=== PATIENT | female | born 1965 | race American Indian/Alaskan Native ===

== ENCOUNTER 2021-04-09 00:53 | Observation (INO) | payer SELFPAY ==
--- NOTE | 2021-04-09 02:20 | Emergency Department Report ---
ED Dizziness HPI - General Chief Complaint: Dizziness Stated Complaint: GENERAL ILLNESS Time Seen by Provider: 04/09/21 02:16 Source: patient, EMS Mode of arrival: Stretcher Limitations: No Limitations - History of Present Illness Initial Comments: Patient is a 55-year-old female that presents emergency room with complaints of dizziness, headache, shortness of breath, lightheadedness, loss of balance and difficulties walking. Patient states her symptoms started approximately 30 minutes prior to arrival. Patient states that her symptoms are better with rest. Patient states her symptoms are better with movement and exertion. Patient denies chest pain. Patient states her shortness of breath better with rest and worse with exertion. Patient denies recent travel. Patient denies recent international travel. Patient denies exposure to the novel coronavirus. Patient denies sick contacts. Patient denies fever and chills. Patient denies cough. Patient denies diarrhea. Patient denies coming in contact with anybody with symptoms of the n ovel coronavirus. MD Complaint: dizziness, lightheadedness -: Sudden Timing: sudden onset Description: lightheadedness, difficulty walking History of Same: No History of Trauma: No Severity: severe Improves With: rest Worsens With: movement, position, exertion Associated Symptoms: malaise, shortness of breath, weakness, other (Headache). denies: ataxia, chest pain, confusion, cough, diaphoresis, fever/chills, loss of appetite, syncope - Related Data Allergies Allergy/AdvReac Type Severity Reaction Status Date / Time lisinopril Allergy Unknown Verified 04/09/21 01:09 ED Review of Systems ROS: Stated complaint: GENERAL ILLNESS Other details as noted in HPI Constitutional: denies: chills, fever Eyes: denies: eye pain, eye discharge, vision change ENT: denies: ear pain, throat pain Respiratory: shortness of breath. denies: cough, wheezing Cardiovascular: denies: chest pain, palpitations Endocrine: no symptoms reported Gastrointestinal: denies: abdominal pain, nausea, diarrhea Genitourinary: denies: urgency, dysuria, discharge Musculoskeletal: denies: back pain, joint swelling, arthralgia Skin: denies: rash, lesions Neurological: as per HPI, headache. denies: weakness, paresthesias Psychiatric: denies: anxiety, depression Hematological/Lymphatic: denies: easy bleeding, easy bruising ED Past Medical Hx - Past Medical History Previous Medical History?: Yes Hx Hypertension: Yes Hx CVA: (TIA) Hx Diabetes: Yes - Surgical History Past Surgical History?: Yes Additional Surgical History: abscess to jaw, gallstones - Family History Family history: no significant - Social History Smoking Status: Never Smoker Substance Use Type: None ED Physical Exam - General Limitations: No Limitations General appearance: alert, in no apparent distress - Head Head exam: Present: atraumatic, normocephalic - Eye Eye exam: Present: normal appearance - ENT ENT exam: Present: mucous membranes moist - Neck Neck exam: Present: normal inspection - Respiratory Respiratory exam: Present: normal lung sounds bilaterally. Absent: respiratory distress - Cardiovascular Cardiovascular Exam: Present: regular rate, normal rhythm. Absent: systolic murmur, diastolic murmur, rubs, gallop - GI/Abdominal GI/Abdominal exam: Present: soft, normal bowel sounds - Extremities Exam Extremities exam: Present: normal inspection - Back Exam Back exam: Present: normal inspection - Neurological Exam Neurological exam: Present: alert, oriented X3 - Psychiatric Psychiatric exam: Present: normal affect, normal mood - Skin Skin exam: Present: warm, dry, intact, normal color. Absent: rash ED Course Vital Signs 04/09/21 04/09/21 01:00 02:33 Temperature 99.7 F H Pulse Rate 127 H Respiratory 18 24 Rate Blood Pressure 133/82 [Left] O2 Sat by Pulse 95 96 Oximetry - Reevaluation(s) Reevaluation #1: I discussed all results with patient. I discussed plan of care with patient. Patient agrees with plan of care and admission. Patient to be admitted to the hospitalist service. 04/09/21 05:33 - Consultations Consultation #1: Hospitalist consulted for admission. Hospitalist to admit patient. 04/09/21 05:34 ED Medical Decision Making - Lab Data Result diagrams: 04/09/21 02:30 04/09/21 02:30 - EKG Data -: EKG Interpreted by Me EKG shows normal: sinus rhythm, axis, intervals, QRS complexes, ST-T waves Rate: normal - Radiology Data Radiology results: report reviewed, image reviewed interpreted by me: Chest x-ray: No pneumonia, no pneumothorax, no foreign body, no osseous findings, no acute findings CHEST 1 VIEW 04/09/2021 2:25 AM INDICATION / CLINICAL INFORMATION: sob. COMPARISON: None available. FINDINGS: SUPPORT DEVICES: None. HEART / MEDIASTINUM: No significant abnormality. LUNGS / PLEURA: No significant pulmonary or pleural abnormality. No pneumothorax. ADDITIONAL FINDINGS: No significant additional findings. IMPRESSION: 1. No acute findings. CT HEAD WITHOUT CONTRAST INDICATION / CLINICAL INFORMATION: Lightheadedness/Dizziness. TECHNIQUE: All CT scans at this location are performed using CT dose reduction for ALARA by means of automated exposure control. COMPARISON: None available. FINDINGS: No acute intracranial hemorrhage. Ventricles are normal in size without midline shift or mass effect. Mild streaky last 3. Small retention cyst in the right maxillary sinus. ADDITIONAL FINDINGS: None. IMPRESSION: 1. No acute intracranial abnormality. If there is concern for acute ischemic change MRI with diffusion could be performed. - Medical Decision Making Patient is a 55-year-old female who presents emergency room with complaints of dizziness, lightheadedness, shortness of breath, abnormal gait, headache. Patient had a TIA in the past. Patient had a CT scan of the head which was negative for acute finding. Patient had a chest x-ray which was negative for acute findings. I personally reviewed the chest x-ray. Patient had a EKG which showed no acute changes. I personally reviewed the EKG. Patient had labs done which were essentially unremarkable. Due to the patient history and current s ymptoms, the patient will require inpatient treatment. Patient admitted to the hospital service for further evaluation treatment. Critical care time documented due to the multiple reassessments, prolonged time at the bedside, interpretation of diagnostics and labs. - Differential Diagnosis TIA, dizziness, abnormal gait, shortness of breath, headache Critical Care Time: Yes Critical care time in (mins) excluding proc time.: 35 Critical care attestation.: If time is entered above; I have spent that time in minutes in the direct care of this critically ill patient, excluding procedure time. Critical Care Time: 35 minutes ED Disposition Clinical Impression: Abnormal gait, Dizziness, Shortness of breath Headache Qualifiers: Headache type: unspecified Headache chronicity pattern: acute headache Intractability: not intractable Qualified Code(s): R51.9 - Headache, unspecified Disposition: ADMITTED INPATIENT Is pt being admited?: Yes Does the pt Need Aspirin: No Condition: Critical Time of Disposition: 05:32
--- NOTE | 2021-04-09 02:56 | XRay Report ---
CHEST 1 VIEW 04/09/2021 2:25 AM INDICATION / CLINICAL INFORMATION: sob. COMPARISON: None available. FINDINGS: SUPPORT DEVICES: None. HEART / MEDIASTINUM: No significant abnormality. LUNGS / PLEURA: No significant pulmonary or pleural abnormality. No pneumothorax. ADDITIONAL FINDINGS: No significant additional findings. IMPRESSION: 1. No acute findings. Signer Name: Dejan Mason MD Signed: 04/09/2021 2:51 AM Workstation Name: [id number]
[2021-04-09 03:08] LABS: Basophils % (Auto) 0.4 % (0.0-1.8); Eosinophils % (Auto) 0.3 % (0.0-4.3); Hematocrit 40.7 % (30.3-42.9); Lymphocytes # (Auto) 2.3 K/mm3 (1.2-5.4); Mean Corpuscular HGB Conc 32 % (30-34); Mean Corpuscular Volume 86 fl (79-97); Monocytes # (Auto) 0.5 K/mm3 (0.0-0.8); Monocytes % (Auto) 6.7 % (0.0-7.3); Platelet Count 357 K/mm3 (140-440); Red Blood Count 4.75 M/mm3 (3.65-5.03); Red Cell Distribution Width 15.3 % (13.2-15.2)
--- NOTE | 2021-04-09 03:10 | Cat Scan Report ---
CT HEAD WITHOUT CONTRAST INDICATION / CLINICAL INFORMATION: Lightheadedness/Dizziness. TECHNIQUE: All CT scans at this location are performed using CT dose reduction for ALARA by means of automated e xposure control. COMPARISON: None available. FINDINGS: No acute intracranial hemorrhage. Ventricles are normal in size without midline shift or mass effect. Mild streaky last 3. Small retention cyst in the right maxillary sinus. ADDITIONAL FINDINGS: None. IMPRESSION: 1. No acute intracranial abnormality. If there is concern for acute ischemic change MRI with diffusio n could be performed. Signer Name: Dejan Mason MD Signed: 04/09/2021 3:06 AM Workstation Name: [email or web address]
[2021-04-09 03:32] LABS: Alanine Aminotransferase 44 units/L (7-56); Albumin 4.1 g/dL (3.9-5); BUN/Creatinine Ratio 12; Blood Urea Nitrogen 11 mg/dL (7-17); Calcium 9.5 mg/dL (8.4-10.2); Hemolysis Index 3
--- NOTE | 2021-04-09 07:49 | History and Physical Report ---
History of Present Illness Date of examination: 04/09/21 Date of admission: 04/09/2021 Chief complaint: dizziness, generalized weakness and unsteady gait History of present illness: 55-year-old female patient with significant past medical history of hypertension, TIA morbid obesity presented to the emergency room with dizziness generalized weakness unsteady gait of 1 hour prior to presenting to the emergency room, patient denies any loss of consciousness or fall has history of remote TIA not on any medications initial evaluation with CT head without contrast no acute abnormality noted Patient is not a candidate for TPA Patient is being admitted for further neuro evaluation to rule out CVA versus TIA. Patient symptoms significantly improved at the time of my evaluation Past History Past Medical History: diabetes, hypertension, other (TIA) Past Surgical History: Other (Abscess Jaw) Social history: denies: smoking, alcohol abuse, other (Recreational drug use) Family history: no significant family history Medications and Allergies Allergies Allergy/AdvReac Type Severity Reaction Status Date / Time lisinopril Allergy Unknown Verified 04/09/21 01:09 Home Medications Medication Instructions Recorded Confirmed Last Taken Type Amitriptyline 50 mg PO HS 04/09/21 04/09/21 04/07/21 History Aspirin 81 mg PO QDAY 04/09/21 04/09/21 04/07/21 08:00 History Baclofen 10 mg PO TID 04/09/21 04/09/21 04/07/21 20:00 History Cetirizine HCl 10 mg PO QDAY 04/09/21 04/09/21 04/07/21 History DULoxetine 30 mg PO DAILY 04/09/21 04/09/21 04/07/21 20:00 History Diclofenac 1% 2 gm TD TID PRN 04/09/21 04/09/21 04/07/21 10:00 History Esomeprazole Magnesium 20 mg PO DAILY 04/09/21 04/09/21 04/07/21 08:00 History Lidocaine 5 patch TD QDAY PRN 04/09/21 04/09/21 04/07/21 08:00 History Losartan 50 mg PO DAILY 04/09/21 04/09/21 04/07/21 08:00 History Metoprolol Xl 25 mg PO DAILY 04/09/21 04/09/21 04/07/21 08:00 History Pregabalin 75 mg PO BID 10/04/09/21 04/07/21 20:00 History Rivaroxaban [Xarelto] 20 mg PO QDAY 04/09/21 04/09/21 04/07/21 08:00 History Rosuvastatin Calcium 10 mg PO DAILY 04/09/21 04/09/21 04/07/21 History metFORMIN 500 mg PO BID 04/09/21 04/09/21 04/07/21 17:00 History Active Meds: Active Medications Aspirin (Aspirin 325 Mg Tab) 325 mg PO QDAY [facility] Atorvastatin Calcium (Atorvastatin 40 Mg Tab) 40 mg PO QHS [facility] Review of Systems Constitutional: weakness, other (Dizziness, unsteady gait), no weight loss, no weight gain, no anorexia, no fatigue Ears, nose, mouth and throat: no nasal congestion, no nasal discharge Cardiovascular: no chest pain, no orthopnea, no palpitations, no shortness of breath Respiratory: no cough, no hemoptysis Gastrointestinal: no abdominal pain, no nausea, no vomiting Genitourinary Female: no flank pain, no dysuria, no hematuria Musculoskeletal: no myalgias, no arthritis Integumentary: no rash, no lesions Neurological: weakness, ataxia, gait dysfunction, other (Unsteady gait) Psychiatric: no anxiety, no depression Endocrine: no cold intolerance, no heat intolerance Hematologic/Lymphatic: no easy bruising, no easy bleeding Allergic/Immunologic: no urticaria, no allergic rhinitis Exam - Constitutional Vitals: Temp Pulse Resp BP Pulse Ox 99.7 F H 127 H 24 133/82 96 04/09/21 01:00 04/09/21 01:00 04/09/21 02:33 04/09/21 01:00 04/09/21 02:33 General appearance: Present: no acute distress, well-nourished, obese (Morbidly obese) - EENT Eyes: Present: PERRL, EOM intact - Neck Neck: Present: supple, normal ROM - Respiratory Respiratory effort: normal Respiratory: bilateral: diminished, rhonchi, negative: rales, wheezing - Cardiovascular Rhythm: regular - Extremities Extremities: no ischemia, No edema - Abdominal General gastrointestinal: Present: soft, non-tender, non-distended, normal bowel sounds - Integumentary Integumentary: Present: clear, warm - Musculoskeletal Musculoskeletal: strength equal bilaterally, generalized weakness - Psychiatric Psychiatric: appropriate mood/affect, cooperative - Neurologic Neurologic: moves all extremities HEART Score - HEART Score Troponin: Troponin T < 0.010 ng/mL (0.00-0.029) 04/09/21 02:30 Results - Labs CBC & Chem 7: 04/09/21 02:30 04/09/21 02:30 Labs: Abnormal lab results 04/09/21 04/09/21 Range/Units 02:30 02:30 MCH 27 L (28-32) pg RDW 15.3 H (13.2-15.2) % Glucose 108 H (65-100) mg/dL Assessment and Plan - Patient Problems (1) Unsteady gait Current Visit: Yes Status: Acute Plan to address problem: Fall precautions Neuro work-up with MRI brain without, evaluate for acute CVA versus TIA Physical therapy occupational therapy, rehabilitation carotid Doppler, echocardiogram (2) Neurological symptoms Current Visit: Yes Status: Acute Plan to address problem: Neurochecks, MRI brain (3) Acute CVA (cerebrovascular accident) Current Visit: Yes Status: Acute Plan to address problem: MRI brain without contrast, echocardiogram, carotid Doppler PT OT, speech therapy if needed Neurology consult if indicated (4) TIA (transient ischemic attack) Current Visit: Yes Status: Acute Plan to address problem: Requested needle evaluation (5) Morbid obesity with BMI of 40.0-44.9, adult Current Visit: Yes Status: Acute Plan to address problem: Advised dietary modification, exercise as tolerated, and weight reduction when medically stable. Advised outpatient bariatric consultation for weight reduction program when medically stable Advised outpatient pulmonary evaluation to rule out obstructive sleep apnea and for possible CPAP BiPAP at night (6) DVT prophylaxis Current Visit: Yes Status: Acute Plan to address problem: Subcu Lovenox (7) Full code status Current Visit: Yes Status: Acute (8) Discharge planning issues Current Visit: Yes Status: Acute Plan to address problem: Per case management
[2021-04-09 08:30] LABS: Chol/HDL Ratio 2.21 %
[2021-04-09] MEDS ORDERED: LORazepam 2 MG/ML VIAL IV PRN (08:40)
[2021-04-09] MEDS: ASPIRIN 325 MG TAB PO SCH (10:38)
[2021-04-09] MEDS: PANTOPRAZOLE 40 MG TAB PO SCH (10:38)
--- NOTE | 2021-04-09 10:54 | Vascular Lab Report ---
DUPLEX DOPPLER ULTRASOUND CAROTID, BILATERAL INDICATION / CLINICAL INFORMATION: Neuro symptoms/CVA vs TIA. COMPARISON: None available. FINDINGS: RIGHT CAROTID: - PLAQUE ESTIMATE (%): < 50% - CCA velocity: 52 cm/sec. - ICA peak systolic velocity: 78 cm/sec. - ICA/CCA PSV Ratio: Less than 2 Right Vertebral Artery: Antegrade flow. LEFT CAROTID: - PLAQUE ESTIMATE: < 50% - CCA velocity: 57 cm/sec. - ICA peak systolic velocity: 66 cm/sec. - ICA/CCA PSV Ratio: Less than 2 Left Vertebral Artery: Antegrade flow. IMPRESSION: 1. Right Internal Carotid Artery: Less than 50% diameter stenosis. 2. Left Internal Carotid Artery: Less than 50% diameter stenosis. Velocity criteria are extrapolated from diameter data as defined by the Society of Radiologists in Ul trasound Consensus Conference, Radiology 2003; 229;340-346. NO STENOSIS (NORMAL) * Plaque = none; ICA PSV < 125 cm/sec; ICA/CCA PSV Ratio < 2.0 <50% STENOSIS * Plaque < 50%; ICA PSV < 125 cm/sec; ICA/CCA PSV Ratio < 2.0 50-69% STENOSIS * Plaque > 50%; ICA PSV = 125-230 cm/sec; ICA/CCA PSV Ratio = 2.0-4.0 >70% BUT <100% STENOSIS * Plaque > 50%; ICA PSV > 230 cm/sec; ICA/CCA PSV Ratio > 4.0 NEAR OCCLUSION * Plaque = visible lumen; ICA PSV = high/low/none; ICA/CCA PSV Ratio = variable TOTAL OCCLUSION * Plaque = no lumen; ICA PSV = none; ICA/CCA PSV Ratio = N/A Signer Name: Jasper Yepez MD Signed: 04/09/2021 10:49 AM Workstation Name: [email or web address]
--- NOTE | 2021-04-09 14:17 | Electrocardiograph Report ---
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
[2021-04-10] MEDS ORDERED: METOPROLOL TARTRATE 50 MG TAB PO ONE (07:57)
[2021-04-10 08:17] VITALS: BP 80/44
[2021-04-10] MEDS: METOPROLOL SUCCINATE XL 25 MG TAB PO SCH ×2 (08:25→09:29)
[2021-04-10] MEDS: PANTOPRAZOLE 40 MG TAB PO SCH (08:26)
[2021-04-10] MEDS: ASPIRIN 325 MG TAB PO SCH ×2 (08:26→09:29)
--- NOTE | 2021-04-10 08:43 | Progress Note ---
Assessment and Plan Assessment and plan: -- Unsteady gait Current Visit: Yes Status: Acute Fall precautions Neuro work-up with MRI brain without, evaluate for acute CVA versus TIA Physical therapy occupational therapy, rehabilitation CT head without contrast MRI brain Carotid Doppler Echocardiogram No acute abnormalities noted -- Neurological symptoms Current Visit: Yes Status: Acute Neurochecks, MRI brain -- Acute CVA (cerebrovascular accident) ruled out Current Visit: Yes Status: Acute MRI brain without contrast no acute abnormality PT OT, speech therapy if needed Neurology consult if indicated -- TIA (transient ischemic attack) Current Visit: Yes Status: Acute Patient symptoms resolved --History of a flutter; rapid ventricular rate Current Visit: Yes Status: Acute Patient did not receive her beta-blockers and Xarelto Resume Toprol-XL and Xarelto - Morbid obesity with BMI of 40.0-44.9, adult Current Visit: Yes Status: Acute Advised dietary modification, exercise as tolerated, and weight reduction when medically stable. Advised outpatient bariatric consultation for weight reduction program when medically stable Advised outpatient pulmonary evaluation to rule out obstructive sleep apnea and for possible CPAP BiPAP at night --DVT prophylaxis Current Visit: Yes Status: Acute Subcu Lovenox --Full code status Current Visit: Yes Status: Acute -- Discharge planning issues Current Visit: Yes Status: Acute Per case management Resume patient's home medications Closely monitor, possible discharge this evening if stable Hospitalist Physical - Constitutional Vitals: Temp Pulse Resp BP Pulse Ox 97.9 F 124 H 18 80/44 95 04/10/21 07:45 04/10/21 07:45 04/10/21 07:45 04/10/21 07:45 04/10/21 07:45 General appearance: Present: no acute distress, well-nourished, obese (Morbidly obese) HEART Score - HEART Score Troponin: Troponin T < 0.010 ng/mL (0.00-0.029) 04/09/21 02:30 Results - Labs CBC & Chem 7: 04/09/21 02:30 04/09/21 02:30 Labs: Laboratory Last Values WBC 7.6 K/mm3 (4.5-11.0) 04/09/21 02:30 RBC 4.75 M/mm3 (3.65-5.03) 04/09/21 02:30 Hgb 13.0 gm/dl (10.1-14.3) 04/09/21 02:30 Hct 40.7 % (30.3-42.9) 04/09/21 02:30 MCV 86 fl (79-97) 04/09/21 02:30 MCH 27 pg (28-32) L 04/09/21 02:30 MCHC 32 % (30-34) 04/09/21 02:30 RDW 15.3 % (13.2-15.2) H 04/09/21 02:30 Plt Count 357 K/mm3 (140-440) 04/09/21 02:30 Lymph % (Auto) 30.0 % (13.4-35.0) 04/09/21 02:30 [place] % (Auto) 6.7 % (0.0-7.3) 04/09/21 02:30 Eos % (Auto) 0.3 % (0.0-4.3) 04/09/21 02:30 Baso % (Auto) 0.4 % (0.0-1.8) 04/09/21 02:30 Lymph # (Auto) 2.3 K/mm3 (1.2-5.4) 04/09/21 02:30 [place] # (Auto) 0.5 K/mm3 (0.0-0.8) 04/09/21 02:30 Eos # (Auto) 0.0 K/mm3 (0.0-0.4) 04/09/21 02:30 Baso # (Auto) 0.0 K/mm3 (0.0-0.1) 04/09/21 02:30 Seg Neutrophils % 62.6 % (40.0-70.0) 04/09/21 02:30 Seg Neutrophils # 4.8 K/mm3 (1.8-7.7) 04/09/21 02:30 Sodium 140 mmol/L (137-145) 04/09/21 02:30 Potassium 3.8 mmol/L (3.6-5.0) 04/09/21 02:30 Chloride 100.1 mmol/L (98-107) 04/09/21 02:30 Carbon Dioxide 26 mmol/L (22-30) 04/09/21 02:30 Anion Gap 18 mmol/L 04/09/21 02:30 BUN 11 mg/dL (7-17) 04/09/21 02:30 Creatinine 0.9 mg/dL (0.6-1.2) 04/09/21 02:30 Estimated GFR > 60 ml/min 04/09/21 02:30 BUN/Creatinine Ratio 12 % 04/09/21 02:30 Glucose 108 mg/dL (65-100) H 04/09/21 02:30 Calcium 9.5 mg/dL (8.4-10.2) 04/09/21 02:30 Total Bilirubin 0.20 mg/dL (0.1-1.2) 04/09/21 02:30 AST 29 units/L (5-40) 04/09/21 02:30 ALT 44 units/L (7-56) 04/09/21 02:30 Alkaline Phosphatase 55 units/L (35-129) 04/09/21 02:30 Troponin T < 0.010 ng/mL (0.00-0.029) 04/09/21 02:30 Total Protein 7.6 g/dL (6.3-8.2) 04/09/21 02:30 Albumin 4.1 g/dL (3.9-5) 04/09/21 02:30 Albumin/Globulin Ratio 1.2 % 04/09/21 02:30 Triglycerides 102 mg/dL (2-149) 04/09/21 02:05 Cholesterol 146 mg/dL (50-199) 04/09/21 02:05 LDL Cholesterol Direct 65 mg/dL (50-130) 04/09/21 02:05 HDL Cholesterol 66 mg/dL (40-59) H 04/09/21 02:05 Cholesterol/HDL Ratio 2.21 % 04/09/21 02:05 [place]/IV: Voiding Method Toilet Active Medications - Current Medications Current Medications: Generic Name Dose Route Start Last Admin Trade Name Freq PRN Reason Stop Dose Admin Aspirin 325 mg 04/09/21 10:00 04/10/21 08:26 Aspirin 325 Mg Tab PO 325 mg QDAY HERNAN Administration Atorvastatin Calcium 40 mg 04/09/21 22:00 04/09/21 21:10 Atorvastatin 40 Mg Tab PO 40 mg QHS HERNAN Administration Lorazepam 2 mg 04/09/21 08:40 04/09/21 08:47 Lorazepam 2 Mg/Ml Vial IV 2 mg Q4H PRN Administration Agitation Metoprolol Succinate 25 mg 04/10/21 10:00 04/10/21 08:25 Metoprolol Succinate Xl 25 Mg Tab PO 25 mg QDAY HERNAN Administration Pantoprazole Sodium 40 mg 04/09/21 10:00 04/10/21 08:26 Pantoprazole 40 Mg Tab PO 40 mg QDAC HERNAN Administration Pregabalin 75 mg 04/10/21 10:00 Pregabalin 75 Mg Cap PO BID HERNAN Rivaroxaban 20 04/10/21 10:00 Rivaroxaban*Go To [facility] Order Set To Order PO QDAY HERNAN
[2021-04-10] MEDS ORDERED: LOSARTAN 50 MG TAB PO SCH (10:00)
[2021-04-10] MEDS ORDERED: ASPIRIN 81 MG TAB CHEW PO SCH (10:00)
[2021-04-10] MEDS ORDERED: DULoxetine 30 MG CAP PO SCH (10:00)
[2021-04-10] MEDS ORDERED: PREGABALIN 75 MG PO SCH (10:00)
[2021-04-10] MEDS ORDERED: METOPROLOL 25 MG PO SCH (10:00)
[2021-04-10] MEDS ORDERED: NON-FORMULARY EACH (Duloxetine 30 MG) PO SCH (10:00)
[2021-04-10] MEDS ORDERED: NON-FORMULARY EACH (Aspirin 81 MG) PO SCH (10:00)
[2021-04-10] MEDS ORDERED: PREGABALIN 75 MG CAP PO SCH (10:00)
[2021-04-10] MEDS ORDERED: [UNRECOGNIZED DRUG - OTHER] PO SCH (10:00)
[2021-04-10] MEDS ORDERED: NON-FORMULARY EACH (Losartan 50 MG) PO SCH (10:00)
[2021-04-10] MEDS ORDERED: NON-FORMULARY EACH (Rivaroxaban 20 MG Tablet) PO SCH (10:00)
[2021-04-10] MEDS ORDERED: RIVAROXABAN 20 MG TAB PO SCH (11:00)
--- NOTE | 2021-04-10 11:52 | Discharge Summary ---
Providers - Providers Date of Admission: 04/09/21 06:36 Date of discharge: 04/10/21 Attending physician: JORDAN SAXENA 04/09/21 07:38 Occupational Therapy Evaluate and Treat [CONS] Routine Comment: Evaluate and treat, discharge needs Reason For Exam: Neuro symptoms, unsteady gait Physical Therapy Evaluation and Treat [CONS] Routine Comment: Evaluate and treat/DC needs Reason For Exam: Neuro symptoms, unsteady gait Hospitalization Reason for admission: Dizziness/unsteady gait/neuro symptoms Condition: Stable Pertinent studies: CT head without contrast no acute intracranial abnormality noted MRI; unable to do due to morbid obesity[advised open MRI] Carotid Doppler; less than 50% stenosis bilateral Echocardiogram; EF 50 to 55% Hospital course: 55-year-old female patient with significant past medical history of hypertension, TIA morbid obesity presented to the emergency room with dizziness generalized weakness unsteady gait of 1 hour prior to presenting to the emergency room, patient denies any loss of consciousness or fall has history of remote TIA not on any medications initial evaluation with CT head without contrast no acute abnormality noted Patient was not a candidate for TPA Patient was admitted for further neuro evaluation to rule out CVA versus TIA. Patient symptoms significantly improved at the time of my evaluation Patient was admitted had extensive neuro work-up CT head without contrast negative for acute abnormality unable to do MRI due to morbid obesity recommend open MRI as outpatient, Symptoms significantly improved. Today patient is comfortable no new complaints, denies any dizziness or unsteady gait, ambulatory without support and tolerating oral nutrition Patient is hemodynamically and clinically stable at discharge Patient has history of atrial flutter on beta-blockers and Xarelto, patient strongly encouraged to comply with medications, and explained to the patient that patient Xarelto in the setting of atrial flutter would prevent stroke or strokelike symptoms if she is compliant with medications. Patient verbalized understanding and and reported that she has been compliant with medications, advised to see her private senior games technician per schedule upon discharge Patient does not have any needs DC Discharge diagnosis: -- Unsteady gait Current Visit: Yes Status: Acute Neuro work-up so far is negative Patient symptoms completely resolved Ambulatory without support -- Neurological symptoms Current Visit: Yes Status: Acute CT head without contrast is negative, unable to do MRI due to morbid obesity Advised outpatient open MRI upon discharge And follow private neurologist -- Acute CVA (cerebrovascular accident) symptoms completely resolved/unlikely CVA Current Visit: Yes Status: Acute MRI brain could not be done due to morbid obesity bnormality Symptoms resolved -- TIA (transient ischemic attack) Current Visit: Yes Status: Acute Patient symptoms resolved --History of a flutter; rapid ventricular rate Current Visit: Yes Status: Acute Patient did not receive her beta-blockers and Xarelto Resume Toprol-XL and Xarelto -Ongoing tobacco use; --Hypertension --Dyslipidemia --Peripheral neuropathy - Morbid obesity with BMI of 40.0-44.9, adult Current Visit: Yes Status: Acute Advised dietary modification, exercise as tolerated, and weight reduction when medically stable. Advised outpatient bariatric consultation for weight reduction program when medically stable Advised outpatient pulmonary evaluation to rule out obstructive sleep apnea and for possible CPAP BiPAP at night Stable at discharge Disposition: 01 HOME / SELF CARE / HOMELESS Final Discharge Diagnosis (Prints w/discharge instructions): Unsteady gait; improved. Possible CVA/ patient needs open MRI outpatient. Transient ischemic attack. History of atrial flutter. Chronic anticoagulation. Morbid obesity BMI 44.6. Ongoing tobacco use. Hypertension. Peripheral neuropathy. Dyslipidemia. Type 2 diabetes mellitus Time spent for discharge: 35 min Core Measure Documentation - Palliative Care Palliative Care/ Comfort Measures: Not Applicable - Core Measures Any of the following diagnoses?: none Exam - Constitutional Vitals: Temp Pulse Resp BP Pulse Ox 97.9 F 124 H 18 80/44 95 04/10/21 07:45 04/10/21 07:45 04/10/21 07:45 04/10/21 07:45 04/10/21 07:45 General appearance: Present: no acute distress, well-nourished - EENT Eyes: Present: PERRL, EOM intact - Neck Neck: Present: supple, normal ROM - Respiratory Respiratory effort: normal Respiratory: bilateral: diminished, negative: rales, rhonchi, wheezing - Cardiovascular Rhythm: irregularly irregular Heart Sounds: Present: S1 & S2 - Extremities Extremities: no ischemia, pulses intact - Abdominal General gastrointestinal: Present: soft, non-tender, non-distended, normal bowel sounds - Integumentary Integumentary: Present: clear, warm - Musculoskeletal Musculoskeletal: strength equal bilaterally - Psychiatric Psychiatric: appropriate mood/affect, cooperative - Neurologic Neurologic: moves all extremities Plan Activity: advance as tolerated, fall precautions Diet: other (Cardiac diet as tolerated) Special Instructions: smoking cessation Additional Instructions: Smoking cessation advised, nicotine patch as needed. Strongly advised to comply with medications diet and follow-up visits. Follow- up with your private senior games technician per schedule. Follow-up with neurologist in 2 weeks Follow up with: NOELLE ABURTO [Other] - 7 Days MARCIE THORPE MD [Staff Physician] - 14 Days Forms: Discharge Signature Page Prescriptions: Nicotine [Habitrol] 14 mg TD DAILY #30 patch
[2021-04-10] MEDS ORDERED: FLU VACC QUAD 2021-22(6MOS UP)/PF 60 MCG/0.5 ML SYRINGE IM ONE (12:00)
== END 2021-04-10 13:20 | disposition home or self-care (01) ==
LOC: ED 00:53 → 4A 06:36
PROVIDERS: ADMIT Internal Medicine Geriatric Medicine; ATTEND Internal Medicine
DX: I63.9 Cerebral infarction, unspecified (principal); R29.818 Other symptoms and signs involving the nervous system; G45.9 Transient cerebral ischemic attack, unspecified; E66.01 Morbid (severe) obesity due to excess calories; R42 Dizziness and giddiness; R26.9 Unspecified abnormalities of gait and mobility; R51.9 Headache, unspecified; I10 Essential (primary) hypertension; E11.9 Type 2 diabetes mellitus without complications; I48.92 Unspecified atrial flutter; E78.5 Hyperlipidemia, unspecified; G62.9 Polyneuropathy, unspecified; Z79.899 Other long term (current) drug therapy; Z98.890 Other specified postprocedural states; Z79.82 Long term (current) use of aspirin; Z68.41 Body mass index [BMI] 40.0-44.9, adult
CPT/HCPCS: 36415; 70450; 71045; 80053; 80061; 84484; 85025; 90686; 93005; 93306; 93880; 96374; 97162; 99291; A9270; G0378; J2060